=== PATIENT | female | born 1955 | race Caucasian/White ===

== ENCOUNTER 2023-11-08 01:16 | Emergency (ER) | payer OTHER, MEDICARE, SELFPAY ==
[2023-11-08 01:21] VITALS: BP 137/80
[2023-11-08 01:24] VITALS: BP 137/80; BMI 38.0
[2023-11-08 02:00] VITALS: BP 119/72
[2023-11-08 02:29] LABS: % Basophils 0.6 % (0-2); % Eosinophils 1.9 % (0-6); % Immature Granulocytes 0.4 % (0-0.5); % Lymphocytes 10.9 % (20.5-51.1); % Monocytes 9.2 % (1.7-9.3); Absolute Basophils 0.1 10^3/uL (0-0.2); Absolute Eosinophils 0.2 10^3/uL (0-0.7); Absolute Lymphocytes 0.9 10^3/uL (1.2-3.4); Absolute Monocytes 0.7 10^3/uL (0.1-0.6); Absolute Neutrophils 6.2 10^3/uL (1.4-6.5); Hematocrit 29.7 % (37.0-47.0); Hemoglobin 10.8 g/dL (12.0-16.0); Mean Corp Hgb Conc. 36.4 g/dL (33.0-37.0); Mean Corpuscular Hgb 29.5 pg (27.0-31.0); Mean Corpuscular Volume 81.1 fL (81.0-99.0); Nucleated Red Blood Cells % 0 %; Platelet Count 208 10^3/uL (130-400); Red Blood Cell Count 3.66 10^6/uL (4.20-5.40); Red Cell Dist. Width 13.8 % (11.5-14.5); White Blood Cell Count 8.1 10^3/uL (4.8-10.8)
[2023-11-08 04:00] VITALS: BP 107/76
[2023-11-08 04:04] LABS: ALT (SGPT) 23 U/L (0-35); AST (SGOT) 25 U/L (14-36); Albumin 3.9 g/dl (3.5-5.0); Alkaline Phosphatase 94 U/L (38-126); Blood Urea Nitrogen 12 mg/dl (7-17); Carbon Dioxide 26 mmol/L (22-30); Chloride 97 mmol/L (98-107); Estimated Creatinine Clearance 110 ml/min; Glucose 114 mg/dl (70-99); Potassium 3.4 mmol/L (3.5-5.1); Sodium 134 mmol/L (135-145); Total Bilirubin 0.6 mg/dl (0.2-1.3); Total Protein 6.4 g/dl (6.3-8.2); eGFR > 60.00
--- NOTE | 2023-11-08 04:10 | ED.GENMED ---
History of Present Illness
<VENKAT Galvin - Last Filed: 11/08/23 06:31>
General
Chief Complaint: Post Operative Problem(s)
Source: patient
Exam Limitations: none
Time Seen by Provider: 11/08/23 03:43
Nursing documentation reviewed up to this point in time: agreed with
History of Present Illness
History of Present Illness:
68 year old female presents for evaluation of redness around her R knee surgical site. Pt states that she underwent R knee replacement on 08/29/23, then fractured her femur proximal to the replacement site following this surgery. She then underwent a
second surgery 1.5 months ago for plates and screw placement. Pt is currently placed in [facility] rehabilitation. Pt notes that she noticed redness and dried blood around her surgical scar on 11/06 while in PT on 11/06. Pt adds that the redness
has been spreading over the last 24 hours. She also endorses 5/10 pain at the site. Pt has not had dressings on the area for the last 2 weeks. She denies fever, numbness/tingling of the area, CP, SOB, and N/V. Pt reports that she is scheduled to
remain at [facility] for the next 30 days.
Past History
<VENKAT Galvin - Last Filed: 11/08/23 06:31>
Past History
ED Past Medical History: Fibromyalgia and Other (RSD)
Social History
Living: with family
Review of Systems
<VENKAT Galvin - Last Filed: 11/08/23 06:31>
Review of Systems
Allergies reviewed?: Yes
Constitutional: Reports no symptoms
EENT: Reports no symptoms
Respiratory: Reports no symptoms
Cardiac: Reports no symptoms
ABD/GI: Reports no symptoms
Musculoskeletal: Reports joint pain
Skin: Reports other (erythema )
Neurological: Reports no symptoms
Phy Exam
<VENKAT Galvin - Last Filed: 11/08/23 06:31>
General Physical Exam
General Presentation: well appearing
General age: appears stated age
General Skin: warm
General Habitus: obese
General Mental: alert
General Hydration: appears well hydrated
Cardiovascular Exam
Cardiovascular Exam: regular rate/rhythm, no edema and no murmur
Pulmonary Exam
Pulmonary Exam: lungs clear and no respiratory distress
Neurological Exam
Neurological Exam: alert and oriented x3
Skin Exam
Skin Exam: erythema and warmth (RLE surgical site )
Course
<VENKAT Galvin - Last Filed: 11/08/23 06:31>
Orders/Labs/Results
Orders:
Orders
11/08/23 02:14
IV Insert/Care/Rem.- Treatment PRN
11/08/23 02:24
Complete Blood Count/With Diff Urgent
11/08/23 02:31
CR Knee- Right 4 Or More View* Urgent
Comment:
Reason For Exam: s/p knee replacement, redness/warmth
11/08/23 03:25
Comprehensive Metabolic Panel Urgent
11/08/23 04:18
Aztreonam [Azactam] 2,000 mg IV NOW STA
11/08/23 04:25
Sterile Water [Sterile Water For Injection] 10 ml .ROUTE .STK-MED ONE
11/08/23 04:31
Sterile Water [Sterile Water For Injection] 10 ml IV NOW STA
11/08/23 05:40
HYDROmorphone [Dilaudid] 4 mg .ROUTE .STK-MED ONE
11/08/23 05:42
HYDROmorphone [Dilaudid] 4 mg PO NOW STA
Abnormal Lab Results
11/08/23 11/08/23
02:24 03:25
RBC 3.66 L 10^6/uL
(4.20-5.40)
Hgb 10.8 L g/dL
(12.0-16.0)
Hct 29.7 L %
(37.0-47.0)
Absolute Lymphs (auto) 0.9 L 10^3/uL
(1.2-3.4)
Absolute Monos (auto) 0.7 H 10^3/uL
(0.1-0.6)
Neutrophils % 77.0 H %
(42.2-75.2)
Lymphocytes % 10.9 L %
(20.5-51.1)
Sodium 134 L mmol/L
(135-145)
Potassium 3.4 L mmol/L
(3.5-5.1)
Chloride 97 L mmol/L
(98-107)
Creatinine 0.5 L mg/dL
(0.6-1.0)
Glucose 114 H mg/dl
(70-99)
11/08/23 02:24
11/08/23 03:25
Vital Signs
Initial and Last Documented VS:
Initial Vital Signs
Temp Pulse Resp Pulse Ox
98.2 F 88 19 97
11/08/23 01:18 11/08/23 01:18 11/08/23 01:18 11/08/23 01:18
Last Documented Vital Signs
Temp Pulse Resp BP Pulse Ox
97.9 F 81 18 108/77 93
11/08/23 05:00 11/08/23 04:00 11/08/23 04:00 11/08/23 05:00 11/08/23 05:15
<Magda Rivero, DO - Last Filed: 11/08/23 04:35>
Orders/Labs/Results
Orders:
Orders
11/08/23 02:14
IV Insert/Care/Rem.- Treatment PRN
11/08/23 02:24
Complete Blood Count/With Diff Urgent
11/08/23 02:31
CR Knee- Right 4 Or More View* Urgent
Comment:
Reason For Exam: s/p knee replacement, redness/warmth
11/08/23 03:25
Comprehensive Metabolic Panel Urgent
11/08/23 04:18
Aztreonam [Azactam] 2,000 mg IV NOW STA
11/08/23 04:25
Sterile Water [Sterile Water For Injection] 10 ml .ROUTE .STK-MED ONE
11/08/23 04:31
Sterile Water [Sterile Water For Injection] 10 ml IV NOW STA
11/08/23 05:40
HYDROmorphone [Dilaudid] 4 mg .ROUTE .STK-MED ONE
11/08/23 05:42
HYDROmorphone [Dilaudid] 4 mg PO NOW STA
Abnormal Lab Results
11/08/23 11/08/23
02:24 03:25
RBC 3.66 L 10^6/uL
(4.20-5.40)
Hgb 10.8 L g/dL
(12.0-16.0)
Hct 29.7 L %
(37.0-47.0)
Absolute Lymphs (auto) 0.9 L 10^3/uL
(1.2-3.4)
Absolute Monos (auto) 0.7 H 10^3/uL
(0.1-0.6)
Neutrophils % 77.0 H %
(42.2-75.2)
Lymphocytes % 10.9 L %
(20.5-51.1)
Sodium 134 L mmol/L
(135-145)
Potassium 3.4 L mmol/L
(3.5-5.1)
Chloride 97 L mmol/L
(98-107)
Creatinine 0.5 L mg/dL
(0.6-1.0)
Glucose 114 H mg/dl
(70-99)
11/08/23 02:24
11/08/23 03:25
Vital Signs
Initial and Last Documented VS:
Initial Vital Signs
Temp Pulse Resp Pulse Ox
98.2 F 88 19 97
11/08/23 01:18 11/08/23 01:18 11/08/23 01:18 11/08/23 01:18
Last Documented Vital Signs
Temp Pulse Resp BP Pulse Ox
97.9 F 81 18 108/77 93
11/08/23 05:00 11/08/23 04:00 11/08/23 04:00 11/08/23 05:00 11/08/23 05:15
<VENKAT Galvin - Last Filed: 11/08/23 06:31>
MDM/Problems Addressed
Differential Diagnosis Includes:
cellulitis
MDM/Problems Addressed:
Aztreonam [Azactam] 2,000 mg IV
<Magda Rivero DO - Last Filed: 11/08/23 04:35>
*Radiology
Radiology exam reviewed: preliminary read by ED provider (Right knee with evidence of total knee replacement as well as plate and screws distal femur. No evidence of loosening or acute fracture.)
*Pulse Oximetry
Patient hypoxic: no
*Critical Care Note
Total Time (30-74mins, 75-104mins- exclusive of procedures): Not Applicable
ED Attending Note
<VENKAT Galvin - Last Filed: 11/08/23 06:31>
-
Portions of this chart may have been created with voice recognition software.� Occasional wrong word or��sound alike� substitutions may have occurred due to the inherent limitations of voice recognition software.
<Magda Rivero, DO - Last Filed: 11/08/23 04:35>
ED Attending Note
Patient seen and examined by attending physician: Yes
I performed the substantive portion of visit, reviewed & personally made and approve the management plan that is documented in note by myself or ZARINA.: Yes
I performed a history and physical exam of patient and discussed management with resident, I reviewed resident's note and agree with documented findings and plan of care.: Yes
ED Attending Note:
This is a 68-year-old woman who underwent right total knee replacement earlier this year and then during rehabilitation she inadvertently fell, fracturing her right distal femur requiring distal femur plate and screws approximately 1-1/2 months ago.
Currently residing at [facility] receiving physical therapy where she, thus far is allowed to toe-touch on her right leg. She has had no recurrent falls but does note a scabbed area right medial distal thigh that had been slowly
improving. She had been receiving wound care services at [facility] but wound care was discontinued approximately 2 weeks ago.
While at physical therapy yesterday she noticed some dried blood mid aspect of her medial thigh scar at site of scabbing and became concerned when he she noticed some redness around the area tonight.
She has not had a fever nor chills.
She does have history of reflux sympathetic dystrophy, chronic pain syndrome, chronically maintained on MS Contin as well as Dilaudid tablets but denies increased pain in her knee/thigh and has been doing fairly well with physical therapy.
She has no history of MRSA, no history of diabetes nor known history of immunocompromise.
GENERAL: 68-year-old obese female appears her stated age, awake and alert, pleasant, appears in no acute distress. Afebrile.
EYE: anicteric
NECK: Supple, nontender, no meningismus, no significant adenopathy.
ENT: oral mucosa is moist. No rhinorrhea.
CARDIAC: Regular rate and rhythm. no murmur.
LUNGS: Clear breath sounds bilaterally, no acute respiratory distress, no wheezes/rales/rhonchi
ABDOMEN: Soft, nondistended, without focal tenderness
NEUROLOGICAL: Alert and oriented x3, no focal neuro deficits.
SKIN: Warm and dry, minimally pale in color, fair turgor.
MUSCULOSKELETAL: The right knee has a well-healed surgical scar anterior aspect as well as a surgical scar medial aspect of the distal right thigh that extends to the medial aspect of the knee. At the mid aspect of this medial surgical scar has a
1.5 cm area of crust that is adherent with no drainage nor bleeding. There is a surrounding area of erythema medial to this crust and surgical wound extending medial approximately 11 cm in width and 9 cm in length. This area is very minimally warm
to touch. There is no lymphangitis. Mild local tenderness to palpation. There is no fluctuance nor abscess formation. No joint effusion. Peripheral pulses are full and equal b/l.
PSYCH: Normal and appropriate interaction.
Patient presents with erythema about surgical incision right medial thigh/knee with an area of crusting mid aspect of the wound but the wound otherwise is intact and this crust appears chronic without dehiscence nor drainage.
Area of erythema is mildly warm to touch concerning for an early cellulitis.
Nothing in history nor exam to suggest a deeper wound infection.
She is afebrile and has no history of recent fever.
White blood cell count reassuring at 8.1.
Reported amoxicillin allergy thus will give an IV dose of aztreonam and plan for discharge back to the senior living with a 10-day course of doxycycline.
Will initiate bacitracin to focal crusted area of incisional scar.
Recommend prompt follow-up with senior living physician.
Return precautions discussed.
Discharge Plan
Departure
Patient Disposition: Usp/SNF
Date of Disposition: 11/08/23
Time of Disposition: 04:22
Patient with high blood pressure during this ER visit?: No
Discharge Problem:
Early cellulitis R leg surgical wound
Instructions: Wound Care (DC), Cellulitis (Skin Infection), Adult ED
Prescriptions:
New
doxycycline monohydrate 100 mg capsule
100 mg PO BID Qty: 20 1RF
bacitracin zinc-polymyxin B 500-10,000 unit/gram ointment
1 applic topical Q12H Qty: 28.3 0RF
No Action
aspirin 81 MG tablet,delayed release (DR/EC)
81 mg PO BID
hydromorphone [Dilaudid] 2 MG tablet
2 mg PO BID
morphine 15 MG tablet extended release
15 mg PO BID
naproxen 500 mg Tablet
500 mg PO BID
clarithromycin 500 mg Tablet
500 mg PO BID
Patient Comments:
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
sennosides-docusate sodium [Colace 2-In-1] 8.6-50 mg Tablet
1 tab-cap PO NOON
Theragen Tablet
1 tab PO NOON
potassium chloride 10 mEq Tablet Extended Release
10 meq PO BID
amlodipine [Norvasc] 10 mg Tablet
10 mg PO DAILY
benzonatate 100 mg Capsule
100 mg PO TID
magnesium citrate Solution
150 ml PO HS
hydrochlorothiazide 25 mg Tablet
25 mg PO DAILY
Visbiome 112.5 billion cell Capsule
1 cap PO NOON
guaifenesin [Mucinex] 600 mg Tablet Extended Release 12hr
600 mg PO BID
prednisone 20 mg tablet
40 mg PO DAILY 5 Days Qty: 10 0RF
sennosides [senna] 8.6 mg Tablet
8.6 mg PO BID
polyethylene glycol 3350 [Miralax] 17 gram Powder In Packet
17 g PO DAILY
melatonin 3 mg Tablet
3 mg PO HS
Referrals:
Yang Andrade I., DO [Family Provider] - Next open appointment
Interventions
Interventions:
*Risk Screen - Suicide Last Done: 11/08/23 01:18
*General Assessment Last Done: 11/08/23 01:18
*Neglect/Abuse Screening Last Done: 11/08/23 01:18
*ED COVID-19 Vaccine History Last Done: 11/08/23 01:18
ED-Skin Assessment Last Done: 11/08/23 01:24
Discharge Date and Time
Print Language: RUSSIAN
[2023-11-08] MEDS: AZACTAM 2000 MG IV (04:31)
[2023-11-08] MEDS: STERILE WATER FOR INJECTION 10 ML IV (04:31)
[2023-11-08 05:00] VITALS: BP 108/77
[2023-11-08] MEDS: DILAUDID 4 MG PO (05:42)
[2023-11-08 06:57] VITALS: BP 118/64
== END 2023-11-08 08:11 ==
LOC: EMR 01:16
PROVIDERS: EMERGENCY PHYSICIAN Emergency Medicine; FAMILY PHYSICIAN Internal Medicine
DX: L03.115 Cellulitis of right lower limb (principal); T81.41XA Infection following a procedure, superficial incisional surgical site, initial encounter; Y83.8 Other surgical procedures as the cause of abnormal reaction of the patient, or of later complication, without mention of misadventure at the time of the procedure; Z96.651 Presence of right artificial knee joint
CPT/HCPCS: 99284; 96374; 73564; 80053; 85025

== ENCOUNTER 2023-12-08 18:18 | Emergency (ER) | payer MEDICARE, OTHER, SELFPAY ==
[2023-12-08 18:22] VITALS: BP 109/84
[2023-12-08 18:48] LABS: % Basophils 0.4 % (0-2); % Eosinophils 0.1 % (0-6); % Immature Granulocytes 0.5 % (0-0.5); % Lymphocytes 6.4 % (20.5-51.1); % Monocytes 5.8 % (1.7-9.3); % Neutrophils 86.8 % (42.2-75.2); Absolute Basophils 0.1 10^3/uL (0-0.2); Absolute Immature Granulocytes 0.1 10^3/uL (0-0.05); Absolute Monocytes 0.9 10^3/uL (0.1-0.6); Absolute Neutrophils 13.4 10^3/uL (1.4-6.5); Hematocrit 34.9 % (37.0-47.0); Hemoglobin 12.2 g/dL (12.0-16.0); Mean Corpuscular Hgb 28.6 pg (27.0-31.0); Mean Corpuscular Volume 81.9 fL (81.0-99.0); Mean Platelet Volume 8.3 fL (7.4-10.4); Nucleated Red Blood Cells % 0 %; Platelet Count 207 10^3/uL (130-400); Red Blood Cell Count 4.26 10^6/uL (4.20-5.40); Red Cell Dist. Width 14.5 % (11.5-14.5); White Blood Cell Count 15.4 10^3/uL (4.8-10.8)
[2023-12-08 19:18] LABS: ALT (SGPT) 46 U/L (0-35); AST (SGOT) 54 U/L (14-36); Albumin 4.5 g/dl (3.5-5.0); Alkaline Phosphatase 83 U/L (38-126); Blood Urea Nitrogen 18 mg/dl (7-17); Calcium 9.5 mg/dl (8.4-10.2); Carbon Dioxide 31 mmol/L (22-30); Chloride 92 mmol/L (98-107); Glucose 114 mg/dl (70-99); Potassium 3.5 mmol/L (3.5-5.1); Sodium 133 mmol/L (135-145); Total Bilirubin 0.8 mg/dl (0.2-1.3); Total Protein 7.3 g/dl (6.3-8.2); eGFR > 60.00
--- NOTE | 2023-12-08 19:48 | ED.GENMED ---
History of Present Illness
<Nati Alvarez MD, Resident - Last Filed: 12/08/23 20:47>
General
Chief Complaint: Musculo-Skeletal Complaint
Time Seen by Provider: 12/08/23 19:28
History of Present Illness
History of Present Illness:
The patient is a 68 year old female presented today for evaluation of redness around her R knee surgical site. Pt reported that she underwent R knee replacement on 08/29/23, then fractured her femur proximal to the replacement site following this
surgery. She then underwent a second surgery 2.5 months ago for plates and screw placement on the right side. Pt received PT at [facility]. Pt notes that she noticed redness and dried blood around her surgical scar on 11/06 while in PT on
11/06 for the first time and had been treated with the same problem about one month ago. She reported that she noticed redness on her right knee surgery area again yesterday and it spreaded today more. Pt adds that she had fever and chills this
morning.Currently, She denies fever, numbness/tingling of the area, CP, SOB, and N/V. Pt is able to raise her right leg and bend her knee without increased pain.
If applicable-neuro sx onset
Date of onset of symptoms: 12/08/23
Past History
<Nati Alvarez MD, Resident - Last Filed: 12/08/23 20:47>
Past History
ED Past Medical History: Fibromyalgia and Other (RSD)
Social History
Living: with family
Phy Exam
<Nati Alvarez MD, Resident - Last Filed: 12/08/23 20:47>
Physical Exam
Physical Exam:
The right knee surgical area has redness around the surgery side. The patient has a bandage on the media area on the right knee, and the bandage has yellow color discharge on it. The right knee is warm to touch.
General Physical Exam
General Presentation: well appearing and moderate distress
General age: appears stated age
General Skin: warm and dry
General Habitus: elderly
General Mental: alert
Eye Exam
Eye Exam: EOMI and conjunctiva normal
Cardiovascular Exam
Cardiovascular Exam: regular rate/rhythm, no gallop and no murmur
Pulmonary Exam
Pulmonary Exam: lungs clear, no respiratory distress, no rales, no stridor and no cough
Musculoskeletal Exam
Musculoskeletal Exam: other (Right Knee ROM is limited due pain. Patient is able to raise her right leg and bend her knee without any increased pain. )
Skin Exam
Skin Exam: other (Right knee surgery side is red )
Comment
comment:
Surgery side infection?
Cellulitis?
Course
<Nati Alvarez MD, Resident - Last Filed: 12/08/23 20:47>
Orders/Labs/Results
Orders:
Orders
12/08/23 18:41
C-Reactive Protein Urgent
Comment: ADD ON
CMP [Comprehensive Metabolic Panel] Urgent
Complete Blood Count/With Diff Urgent
Erythrocyte Sed Rate Urgent
Comment: ADD ON
12/08/23 20:25
Pregabalin [Lyrica] 200 mg PO NOW STA
12/08/23 20:26
Add On- LAB Urgent
Tests Added?: esr/crp
12/08/23 20:30
Blood Culture Urgent
MARISELA Source: Blood/Venous
Specimen Description:
12/08/23 20:34
Morphine Sulfate Extended Rel. [Ms Contin (Extended Release)] 15 mg PO NOW STA
12/08/23 20:44
Wound Culture [Wound/Abscess/Other Culture] Urgent
MARISELA Source: Leg
Specimen Description: Left
12/08/23 20:45
Sulfamethox./Trimethoprim Ds [Bactrim Ds 800 mg/160 mg] 1 tablet PO NOW STA
12/08/23 20:46
Doxycycline [Vibramycin] 100 mg PO NOW STA
Abnormal Lab Results
12/08/23
18:41
WBC 15.4 H 10^3/uL
(4.8-10.8)
Hct 34.9 L %
(37.0-47.0)
Abs Immat Gran (auto) 0.1 H 10^3/uL
(0-0.05)
Absolute Neuts (auto) 13.4 H 10^3/uL
(1.4-6.5)
Absolute Lymphs (auto) 1.0 L 10^3/uL
(1.2-3.4)
Absolute Monos (auto) 0.9 H 10^3/uL
(0.1-0.6)
Neutrophils % 86.8 H %
(42.2-75.2)
Lymphocytes % 6.4 L %
(20.5-51.1)
Sodium 133 L mmol/L
(135-145)
Chloride 92 L mmol/L
(98-107)
Carbon Dioxide 31 H mmol/L
(22-30)
BUN 18 H mg/dl
(7-17)
Glucose 114 H mg/dl
(70-99)
AST 54 H U/L
(14-36)
ALT 46 H U/L
(0-35)
12/08/23 18:41
12/08/23 18:41
Vital Signs
Initial and Last Documented VS:
Initial Vital Signs
Temp Pulse Resp BP Pulse Ox
100.3 F 105 16 109/84 96
12/08/23 18:22 12/08/23 18:22 12/08/23 18:22 12/08/23 18:22 12/08/23 18:22
Last Documented Vital Signs
Temp Pulse Resp BP Pulse Ox
100.3 F 105 16 109/84 96
12/08/23 18:22 12/08/23 18:22 12/08/23 18:22 12/08/23 18:22 12/08/23 18:22
<Melchor Josue, DO - Last Filed: 12/08/23 20:52>
Orders/Labs/Results
Orders:
Orders
12/08/23 18:41
C-Reactive Protein Urgent
Comment: ADD ON
CMP [Comprehensive Metabolic Panel] Urgent
Complete Blood Count/With Diff Urgent
Erythrocyte Sed Rate Urgent
Comment: ADD ON
12/08/23 20:25
Pregabalin [Lyrica] 200 mg PO NOW STA
12/08/23 20:26
Add On- LAB Urgent
Tests Added?: esr/crp
12/08/23 20:30
Blood Culture Urgent
MARISELA Source: Blood/Venous
Specimen Description:
12/08/23 20:34
Morphine Sulfate Extended Rel. [Ms Contin (Extended Release)] 15 mg PO NOW STA
12/08/23 20:44
Wound Culture [Wound/Abscess/Other Culture] Urgent
MARISELA Source: Leg
Specimen Description: Left
12/08/23 20:45
Sulfamethox./Trimethoprim Ds [Bactrim Ds 800 mg/160 mg] 1 tablet PO NOW STA
12/08/23 20:46
Doxycycline [Vibramycin] 100 mg PO NOW STA
Abnormal Lab Results
12/08/23
18:41
WBC 15.4 H 10^3/uL
(4.8-10.8)
Hct 34.9 L %
(37.0-47.0)
Abs Immat Gran (auto) 0.1 H 10^3/uL
(0-0.05)
Absolute Neuts (auto) 13.4 H 10^3/uL
(1.4-6.5)
Absolute Lymphs (auto) 1.0 L 10^3/uL
(1.2-3.4)
Absolute Monos (auto) 0.9 H 10^3/uL
(0.1-0.6)
Neutrophils % 86.8 H %
(42.2-75.2)
Lymphocytes % 6.4 L %
(20.5-51.1)
Sodium 133 L mmol/L
(135-145)
Chloride 92 L mmol/L
(98-107)
Carbon Dioxide 31 H mmol/L
(22-30)
BUN 18 H mg/dl
(7-17)
Glucose 114 H mg/dl
(70-99)
AST 54 H U/L
(14-36)
ALT 46 H U/L
(0-35)
12/08/23 18:41
12/08/23 18:41
Vital Signs
Initial and Last Documented VS:
Initial Vital Signs
Temp Pulse Resp BP Pulse Ox
100.3 F 105 16 109/84 96
12/08/23 18:22 12/08/23 18:22 12/08/23 18:22 12/08/23 18:22 12/08/23 18:22
Last Documented Vital Signs
Temp Pulse Resp BP Pulse Ox
100.3 F 105 16 109/84 96
12/08/23 18:22 12/08/23 18:22 12/08/23 18:22 12/08/23 18:22 12/08/23 18:22
<Melchor Josue DO - Last Filed: 12/08/23 20:52>
*Critical Care Note
Total Time (30-74mins, 75-104mins- exclusive of procedures): Not Applicable
<Melchor Josue DO - Last Filed: 12/08/23 20:52>
Update Note
Update Note:
Update I discussed the case with her treating surgeon plan will be antibiotics, his office will call patient tomorrow to have her seen on Friday
Patient and spouse in agreement with plan of care
ED Attending Note
<Nati Alvarez MD, Resident - Last Filed: 12/08/23 20:47>
-
Portions of this chart may have been created with voice recognition software.� Occasional wrong word or��sound alike� substitutions may have occurred due to the inherent limitations of voice recognition software.
<Melchor Josue, - Last Filed: 12/08/23 20:52>
ED Attending Note
Patient seen and examined by attending physician: Yes
I performed a history and physical exam of patient and discussed management with resident, I reviewed resident's note and agree with documented findings and plan of care.: Yes
ED Attending Note:
Seen with resident examined independently
Status post total for respiratory stress dose of few months ago Dr. Melara postoperatively had a fracture had to go back to the OR ultimately had a infection being treated with wound care wound packing not currently antibiotics wrist with fever
chills redness warmth
Will try to touch base with her treating surgeon see about sending her back to [facility]
Discharge Plan
Departure
Patient Disposition: Group Home/SNF
Date of Disposition: 12/08/23
Time of Disposition: 20:48
Patient with high blood pressure during this ER visit?: No
Condition: Good
Covid-19: Not Applicable
Discharge Problem:
Cellulitis
Instructions: Cellulitis (Skin Infection), Adult ED
Prescriptions:
New
doxycycline hyclate 100 mg capsule
100 mg PO BID Qty: 20 0RF
sulfamethoxazole-trimethoprim [Bactrim DS] 800-160 mg tablet
1 tab PO BID 10 Days Qty: 20 0RF
No Action
aspirin 81 MG tablet,delayed release (DR/EC)
81 mg PO BID
hydromorphone [Dilaudid] 2 MG tablet
2 mg PO BID
morphine 15 MG tablet extended release
15 mg PO BID
naproxen 500 mg Tablet
500 mg PO BID
clarithromycin 500 mg Tablet
500 mg PO BID
Patient Comments:
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
sennosides-docusate sodium [Colace 2-In-1] 8.6-50 mg Tablet
1 tab-cap PO NOON
Theragen Tablet
1 tab PO NOON
potassium chloride 10 mEq Tablet Extended Release
10 meq PO BID
amlodipine [Norvasc] 10 mg Tablet
10 mg PO DAILY
benzonatate 100 mg Capsule
100 mg PO TID
magnesium citrate Solution
150 ml PO HS
hydrochlorothiazide 25 mg Tablet
25 mg PO DAILY
Visbiome 112.5 billion cell Capsule
1 cap PO NOON
guaifenesin [Mucinex] 600 mg Tablet Extended Release 12hr
600 mg PO BID
prednisone 20 mg tablet
40 mg PO DAILY 5 Days Qty: 10 0RF
sennosides [senna] 8.6 mg Tablet
8.6 mg PO BID
polyethylene glycol 3350 [Miralax] 17 gram Powder In Packet
17 g PO DAILY
melatonin 3 mg Tablet
3 mg PO HS
doxycycline monohydrate 100 mg capsule
100 mg PO BID Qty: 20 1RF
bacitracin zinc-polymyxin B 500-10,000 unit/gram ointment
1 applic topical Q12H Qty: 28.3 0RF
Referrals:
UNKNOWN - PT DOES,NOT KNOW [Family Provider] -
Activity Restrictions/Additional Instructions:
Call your orthopedic surgeon tomorrow to arrange follow-up on Friday
Take antibiotics as prescribed
Interventions
Interventions:
*Risk Screen - Suicide Last Done: 12/08/23 19:49
*General Assessment Last Done: 12/08/23 18:22
*Neglect/Abuse Screening Last Done: 12/08/23 19:49
ED- Fall Risk Assessment Last Done: 12/08/23 19:49
*ED COVID-19 Vaccine History Last Done: 12/08/23 18:22
ED-Musculoskeletal Assessment Last Done: 12/08/23 19:49
Discharge Date and Time
Print Language: SETSWANA
[2023-12-08 20:00] VITALS: BP 110/85
[2023-12-08] MEDS: BACTRIM DS 800 MG/160 MG 1 TABLET PO (20:48)
[2023-12-08] MEDS: LYRICA 200 MG PO (20:48)
[2023-12-08] MEDS: MS CONTIN (EXTENDED RELEASE) 15 MG PO (20:49)
[2023-12-08] MEDS: VIBRAMYCIN 100 MG PO (20:50)
[2023-12-08 20:55] LABS: Erythrocyte Sed Rate 40 mm/hour (0-20)
== END 2023-12-08 21:19 ==
LOC: EMR 18:18
PROVIDERS: Emergency Medicine; EMERGENCY PHYSICIAN Emergency Medicine; FAMILY PHYSICIAN Internal Medicine
DX: L03.115 Cellulitis of right lower limb (principal); R50.9 Fever, unspecified; M79.7 Fibromyalgia; G90.50 Complex regional pain syndrome I, unspecified; Z96.651 Presence of right artificial knee joint; Z98.890 Other specified postprocedural states; Z79.82 Long term (current) use of aspirin; Z88.6 Allergy status to analgesic agent; Z88.1 Allergy status to other antibiotic agents; Z88.8 Allergy status to other drugs, medicaments and biological substances
CPT/HCPCS: 99283; 80053; 85025; 85652; 86140; 87040

== ENCOUNTER → 2024-02-11 07:58 | Outpatient (REF) | payer MEDICARE, OTHER, SELFPAY | LOC: HWRAD 07:58 | PROVIDERS: ATTENDING PHYSICIAN Family Medicine; FAMILY PHYSICIAN Family Medicine; REFERRING PHYSICIAN Orthopaedic Surgery | DX: M81.0 Age-related osteoporosis without current pathological fracture (principal) | CPT/HCPCS: 77080 ==

== ENCOUNTER → 2024-10-07 10:12 | Outpatient (REF) | payer MEDICARE, OTHER, SELFPAY | LOC: WDC 10:12 | PROVIDERS: ATTENDING PHYSICIAN Nurse Practitioner Adult Health; FAMILY PHYSICIAN Family Medicine | DX: N60.82 Other benign mammary dysplasias of left breast (principal); N63.20 Unspecified lump in the left breast, unspecified quadrant | CPT/HCPCS: 76642; 77062; 77066 ==

== ENCOUNTER → 2024-11-22 15:51 | Outpatient (REF) | payer MEDICARE, OTHER, SELFPAY | LOC: HWRAD 15:51 | PROVIDERS: ATTENDING PHYSICIAN Family Medicine | DX: R05.1 Acute cough (principal) | CPT/HCPCS: 71046 ==

== ENCOUNTER → 2025-01-21 12:41 | Outpatient (REF) | payer MEDICARE, OTHER, SELFPAY | LOC: HWRAD 12:41 | PROVIDERS: ATTENDING PHYSICIAN Family Medicine | DX: R74.01 Elevation of levels of liver transaminase levels (principal) | CPT/HCPCS: 76700 ==